=== PATIENT | male | born 1970 | race African-American/Black ===

== ENCOUNTER 2017-12-06 23:02 | Emergency (ER) | payer SELFPAY ==
[~2017-12-06] VITALS: Ht 185.4 cm; Wt 106.0 kg
[~2017-12-06 23:02] MED LIST: Z.0.NO CURRENT MEDS
[2017-12-06 23:27] VITALS: BP 137/78; PULSE 62; RESP 16; TEMP 98.5; O2SAT 99
--- NOTE | 2017-12-06 23:40 | PD ---
HPI Chief Complaint: Injury Time Seen by Provider: 23:39 Travel History International Travel<30 days: No Contact w/Intl Traveler<30days: No Traveled to known affect area: No History of Present Illness HPI 47-year-old male came to the emergency room with history of right shoulder pain that has been hurting for past 3 weeks. Patient does not know what he could have done to the arm or the shoulder to cause this pain. He says the pain is progressively worsening. Now is having trouble raising his arm or bringing it across to touch his other shoulder. This the first time he seeking medical help. He has been taking Aleve intermittently and applying Aspercreme without much relief. He tends to sleep on his right side. Although lately he has been unable to sleep because of the pain. He is otherwise a healthy person. Upon asking he says that he has not had pain in that shoulder to this degree in the past. No radiation of the pain. PFSH Past Medical History Narrative Medical List of his past medical, surgical, social and family history reviewed from the nursing note. Social History Alcohol Use: Yes Tobacco Use: No Substance Use: No Allergies-Medications (Allergen,Severity, Reaction): Coded Allergies: No Known Allergies (Verified Adverse Reaction, Unknown, 12/06/17) Comments No known drug allergies. Reported Meds & Prescriptions Reported Meds & Active Scripts Active Ketorolac (Ketorolac Tromethamine) 10 Mg Tab 10 Mg PO Q6HR PRN Narrative Medication List of his home medications reviewed from the nursing note. Review of Systems Except as stated in HPI: all other systems reviewed are Neg Musculoskeletal: Positive: Pain Physical Exam Narrative GENERAL: Awake, alert, no obvious to SKIN: Focused skin assessment warm/dry. HEAD: Atraumatic. Normocephalic. EYES: Pupils equal and round. No scleral icterus. No injection or drainage. ENT: No nasal bleeding or discharge. Mucous membranes pink and moist. NECK: Trachea midline. No JVD. CARDIOVASCULAR: Regular rate and rhythm. No murmur appreciated. RESPIRATORY: No accessory muscle use. Clear to auscultation. Breath sounds equal bilaterally. GASTROINTESTINAL: Abdomen soft, non-tender, nondistended. Hepatic and splenic margins not palpable. MUSCULOSKELETAL: No obvious deformities. No clubbing. No cyanosis. No edema. Decreased range of motion of the right shoulder joint especially on abduction NEUROLOGICAL: Awake and alert. No obvious cranial nerve deficits. Motor grossly within normal limits. Normal speech. PSYCHIATRIC: Appropriate mood and affect; insight and judgment normal. Data Data Last Documented VS Vital Signs Date Time Temp Pulse Resp B/P (MAP) Pulse Ox O2 Delivery O2 Flow Rate FiO2 12/07/17 00:51 12/06/17 23:27 98.5 62 16 99 Room Air Orders Orders Shoulder, Complete (>2vws) (12/06/17 ) Ketorolac (Toradol) (12/06/17 23:45) Ed Discharge Order (12/07/17 00:42) [facility] Medical Decision Making Medical Screen Exam Complete: Yes Emergency Medical Condition: Yes Medical Record Reviewed: Yes Differential Diagnosis Rotator cuff injury, biceps tendinitis Narrative Course 12:13 AM patient has been medicated for pain. Awaiting for the x-ray to be done and resulted. 12:42 AM x-ray shows some arthritis but otherwise negative for any acute injury. Patient will be discharged home. He will require an MRI as an outpatient Procedures EKG Prior to Arrival: No Diagnosis Primary Impression: Shoulder pain Qualified Codes: M25.511 - Pain in right shoulder; G89.29 - Other chronic pain Additional Impression: Arthropathy of shoulder region Referrals: [facility] Additional Instructions: Please take the medication as per the prescription direction. You need to follow-up with your primary care and have an MRI ordered for your shoulder by her primary care as an outpatient. He should not be laying on your right side on the affected shoulder. Med/Other Pt SpecificInfo: Prescription(s) given Scripts Ketorolac (Ketorolac) 10 Mg Tab 10 MG PO Q6HR Y for PAIN, #12 TAB 0 Refills Prov: Jimenez Valentin MD 12/07/17 Disposition: 01 DISCHARGE HOME Condition: Stable Jimenez Valentin MD Dec 06, 2017 23:40
[2017-12-06] MEDS ORDERED: KETOROLAC TROMETHAMINE 10 MG TAB PO ONE (23:45)
--- NOTE | 2017-12-07 00:27 | RADRPT ---
EXAM DATE/TIME: 12/06/2017 23:59 This report includes an Addendum and supersedes previous reports for this exam. [facility] COMPARISON: No previous studies available for comparison. INDICATIONS : Nontraumatic right shoulder pain for several weeks. MEDICAL HISTORY : None. SURGICAL HISTORY : None. ENCOUNTER: Initial ACUITY: 3 weeks PAIN SCORE: 3/10 LOCATION: Right shoulder FINDINGS: Multiple view examination of the right shoulder demonstrates no evidence of fracture or dislocation m ild osteoarthritis at the right a.c. joint. There is normal range of motion between internal and exte rnal rotation. Bony mineralization is normal. CONCLUSION: 1. 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 No acute bony abnormalities. Gildardo Londono MD on December 07, 2017 at 0:25 Board Certified Radiologist. This report was verified electronically. ADDENDUM: There is a smooth well-corticated bony density adjacent to the glenoid, possibly a remote avulsion or small accessory ossicle. Gildardo Londono MD on December 07, 2017 at 0:38 Board Certified Radiologist. This report was verified electronically.
[2017-12-07] MEDS ORDERED: KETO10 PO (00:44)
== END 2017-12-07 00:51 | disposition home or self-care (01) ==
LOC: NEPD 23:02
DX: M25.511 Pain in right shoulder (principal); G89.29 Other chronic pain; M12.9 Arthropathy, unspecified
CPT/HCPCS: 73030; 99283